=== PATIENT | female | born 1980 | race Hispanic/Latino ===

== ENCOUNTER 2022-01-25 12:53 | Emergency (ER) | payer SELFPAY ==
[2022-01-25] MEDS ORDERED: SODIUM CHLORIDE 0.9% 1000 ML 1,000 ML IV ONE (16:39)
--- NOTE | 2022-01-25 16:47 | Emergency Department Report ---
ED Headache HPI - General Chief Complaint: Headache Stated Complaint: BODYACHES Time Seen by Provider: 01/25/22 16:28 Source: patient Exam Limitations: no limitations - History of Present Illness Initial Comments: Patient is a 41-year-old female who presents with a headache that she describes as a "halo and like a vice lay out helper that is squeezing 9 out of 10 onset this morning. She has had some nausea with it as well as transient blurred vision and paresthesias of the fingertips and perioral area. she is never had blood pressure problems with the exception of gestational diabetes back in 2005. However about 6 weeks ago she was seen in another ER and her blood pressure was elevated elevated. She was told to follow-up with her primary care but she did not because she felt that it was due to the tooth pain for which she was being seen. Timing/Duration: 4-6 hours Quality: severe Recent Head Trauma: no recent headache/trauma Associated Symptoms: nausea/vomiting (Nausea no vomiting), seizures (History of same), vision changes (Blurry intermittently). denies: confusion, fatigue, facial pain, fever/chills, loss of consciousness, nasal congestion, nasal drainage, numbness in legs/feet, rash, sinus infection, stiff neck, weakness Allergies/Adverse Reactions: Allergies diphenhydramine [From Benadryl] Adverse Reaction (Verified 01/25/22 13:04) Unknown morphine Adverse Reaction (Verified 01/25/22 13:04) Unknown Penicillins Adverse Reaction (Verified 01/25/22 13:04) Unknown Home Medications: Ambulatory Orders Doxycycline Monohydrate [Doxycycline Monohydrate CAP] 100 mg PO BID #20 cap 01/25/22 lisinopriL [Lisinopril] 10 mg PO DAILY #30 tab 01/25/22 ED Review of Systems ROS: Stated complaint: BODYACHES Other details as noted in HPI Comment: All other systems reviewed and negative Constitutional: denies: chills, fever Eyes: eye discharge ENT: denies: ear pain, throat pain Respiratory: denies: cough, orthopnea, shortness of breath Cardiovascular: denies: chest pain, palpitations, edema Endocrine: denies: intolerance to cold, intolerance to heat Gastrointestinal: diarrhea, constipation. denies: abdominal pain, nausea, vomiting Genitourinary: urgency, dysuria, frequency Musculoskeletal: denies: back pain, joint swelling Skin: denies: rash, lesions Neurological: as per HPI, headache, paresthesias (Fingertip and perioral). denies: weakness, numbness, confusion, abnormal gait, vertigo Psychiatric: denies: anxiety, depression Hematological/Lymphatic: denies: easy bleeding, easy bruising ED Past Medical Hx - Past Medical History Hx Hypertension: Yes (Prescribed medication in the ER about 6 weeks ago and did not comply with t) Hx Headaches / Migraines: Yes Additional medical history: Hypothyroidism. Gestational hypertension. Eclampsia. - Family History Family history: no significant - Social History Smoking Status: Current Every Day Smoker Substance Use Type: None - Medications Home Medications: Home Medications Medication Instructions Recorded Confirmed Last Taken Type Doxycycline Monohydrate 100 mg PO BID #20 cap 01/25/22 Unknown Rx [Doxycycline Monohydrate CAP] lisinopriL [Lisinopril] 10 mg PO DAILY #30 tab 01/25/22 Unknown Rx ED Physical Exam - General Limitations: No Limitations General appearance: alert, in distress - Head Head exam: Present: atraumatic (Mild), normocephalic - Eye Eye exam: Absent: scleral icterus, conjunctival injection - ENT ENT exam: Present: mucous membranes moist, TM's normal bilaterally, other (Frontal sinus tenderness). Absent: normal orophraynx (Postnasal drainage) - Neck Neck exam: Present: normal inspection, full ROM. Absent: tenderness, meningismus - Respiratory Respiratory exam: Present: normal lung sounds bilaterally. Absent: respiratory distress, wheezes, rales, rhonchi - Cardiovascular Cardiovascular Exam: Present: regular rate, normal rhythm, normal heart sounds - GI/Abdominal GI/Abdominal exam: Present: soft. Absent: distended - Extremities Exam Extremities exam: Present: normal inspection, full ROM. Absent: tenderness - Neurological Exam Neurological exam: Present: alert, oriented X3, CN II-XII intact, normal gait, motor sensory deficit, reflexes normal - Psychiatric Psychiatric exam: Present: normal affect, normal mood - Skin Skin exam: Present: warm, dry, intact ED Course Vital Signs 01/25/22 01/25/22 01/25/22 13:01 16:38 17:35 Temperature 98.6 F Pulse Rate 86 68 Respiratory 14 Rate Blood Pressure 180/80 Blood Pressure 208/102 214/110 [Left] O2 Sat by Pulse 97 Oximetry 01/25/22 01/25/22 18:12 19:35 Temperature 98.7 F Pulse Rate 60 84 Respiratory 14 Rate Blood Pressure Blood Pressure 194/96 164/86 [Left] O2 Sat by Pulse 100 98 Oximetry - Reevaluation(s) Reevaluation #1: 01/25/22 21:11 Blood pressure 154/89. Patient still has headache but she states "this feels like my migraine." She states Toradol and something for nausea usually works. She does tell me she is recently had some respiratory congestion and feels like she has a sinus infection. She has had no fever but facial pain. Green postnasal drainage. ED Medical Decision Making - Lab Data Result diagrams: 01/25/22 17:23 01/25/22 17:23 - Radiology Data Radiology results: report reviewed CT head/brain no acute findings. - Medical Decision Making Hypertension. Patient has not been complying with lisinopril. Will be ordered. Also discussed need for follow-up with primary care doctor. Migraine. Sinusitis. Critical care attestation.: If time is entered above; I have spent that time in minutes in the direct care of this critically ill patient, excluding procedure time. ED Disposition Clinical Impression: Hypertension, Headache, Sinusitis Disposition: 01 HOME / SELF CARE / HOMELESS Is pt being admited?: No Condition: Stable Instructions: Hypertension (ED), Sinusitis, Adult, [id number], Preventing Hypertension, Hypertension, Adult, [id number] Additional Instructions: Lisinopril. Guaifenesin. 1200 mg extended release twice daily. Warm compresses to the sinuses. Warm salt water gargles. Nasal saline. Follow-up with your primary doctor this week. Return if any worsening of symptoms. Prescriptions: Doxycycline Monohydrate [Doxycycline Monohydrate CAP] 100 mg PO BID #20 cap lisinopriL [Lisinopril] 10 mg PO DAILY #30 tab Referrals: PRIMARY CARE, [Primary Care Provider] - 3-5 Days Forms: Work/School Release Form(ED) Time of Disposition: 21:20
--- NOTE | 2022-01-25 17:17 | Cat Scan Report ---
CT HEAD WITHOUT CONTRAST INDICATION / CLINICAL INFORMATION: Headache. TECHNIQUE: All CT scans at this location are performed using CT dose reduction for ALARA by means of automated exposure control. COMPARISON: None available. FINDINGS: CEREBRAL/CEREBELLAR PARENCHYMA: The cerebral and cerebellar hemispheres are normal for age. No CT evens dence for an acute or subacute territorial infarct. HEMORRHAGE: No acute intra-axial hemorrhage or extra-axial fluid collection. MASS: No mass or mass effect. VENTRICULAR SYSTEM: Normal in size and morphology for the patient's age. ORBITS: Normal as visualized. SOFT TISSUES/SKULL: No scalp hematoma or skull fracture. PARANASAL SINUSES/MASTOID AIR CELLS: Normal as visualized. IMPRESSION: 1. Normal CT brain without acute intracranial process. Signer Name: William Keen MD Signed: 01/25/2022 5:12 PM Workstation Name: [id number]
[2022-01-25] MEDS ORDERED: ONDANSETRON 4 MG/2 ML INJ IV ONE ×2 (17:23→21:06)
[2022-01-25 17:51] LABS: Basophils # (Auto) 0.1 K/mm3 (0.0-0.1); Basophils % (Auto) 0.9 % (0.0-1.8); Eosinophils # (Auto) 0.7 K/mm3 (0.0-0.4); Eosinophils % (Auto) 4.9 % (0.0-4.3); Hematocrit 40.6 % (30.3-42.9); Hemoglobin 13.3 gm/dl (10.1-14.3); Lymphocytes # (Auto) 3.4 K/mm3 (1.2-5.4); Lymphocytes % (Auto) 23.1 % (13.4-35.0); Mean Corpuscular HGB Conc 33 % (30-34); Mean Corpuscular Volume 90 fl (79-97); Monocytes # (Auto) 0.6 K/mm3 (0.0-0.8); Monocytes % (Auto) 4.2 % (0.0-7.3); Platelet Count 359 K/mm3 (140-440); Red Blood Count 4.51 M/mm3 (3.65-5.03); Red Cell Distribution Width 14.1 % (13.2-15.2)
[2022-01-25 18:50] LABS: Blood Urea Nitrogen 10 mg/dL (7-17); Calcium 9.6 mg/dL (8.4-10.2); Hemolysis Index 116
[2022-01-25 18:54] LABS: BUN/Creatinine Ratio 14
[2022-01-25 20:18] LABS: HCG Qualitative,Urine Negative (Negative)
[2022-01-25] MEDS ORDERED: KETOROLAC 30 MG/1 ML INJ IM ONE (21:06)
[2022-01-25 22:32] VITALS: BP 156/81
== END 2022-01-25 22:32 | disposition home or self-care (01) ==
LOC: ED 12:53
DX: I10 Essential (primary) hypertension (principal); R51.9 Headache, unspecified; J01.90 Acute sinusitis, unspecified; F17.200 Nicotine dependence, unspecified, uncomplicated
CPT/HCPCS: 36415; 70450; 80048; 81025; 85025; 96361; 96372; 96374; 96375; 99284; J1885; J2405; J3490; J7030